=== PATIENT | male | born 1960 | race Hispanic/Latino ===

== ENCOUNTER 2021-09-26 03:02 | Emergency (ER) | payer OTHER ==
[~2021-09-26] VITALS: Ht 157.5 cm; Wt 61.2 kg
[2021-09-26] MEDS ORDERED: KETOROLAC 60 MG VIAL (30MG/ML) IM ONE (04:30)
[2021-09-26 08:45] VITALS: BP 122/72
[2021-09-26] MEDS ORDERED: DICL50TA9 PO (08:47)
== END 2021-09-26 09:01 | disposition home or self-care (01) ==
LOC: EDH 03:02
DX: S70.02XA Contusion of left hip, initial encounter (principal); Z79.1 Long term (current) use of non-steroidal anti-inflammatories (NSAID); X58.XXXA Exposure to other specified factors, initial encounter; Y93.89 Activity, other specified; Y92.89 Other specified places as the place of occurrence of the external cause; Y99.8 Other external cause status
CPT/HCPCS: 72170; 96372; 99284; J1885